=== PATIENT | female | born 2000 | race Caucasian/White ===

== ENCOUNTER → 2021-02-11 | Outpatient (CLI) | payer OTHER ==
--- NOTE | 2021-02-11 11:40 | RAD ---
Exam Date: 02/11/2021 11:05 AM XR KNEE 3 VIEWS_RT Indication: Reason: RIGHT KNEE PAIN / Spl. Instructions: / History: FINDINGS/ IMPRESSION: No acute fracture or dislocation. Alignment and joint spaces are maintained. The soft tissues are w ithin normal limits. Electronically signed by: Gelacio Guidry MD (02/11/2021 11:37 AM) [id number]
== END ==
LOC: RAD 10:54
PROVIDERS: ATTEND Nurse Practitioner Family
DX: M25.561 Pain in right knee (principal)
CPT/HCPCS: 73562

== ENCOUNTER 2021-02-22 00:10 | Emergency (ER) | payer OTHER ==
[~2021-02-22] VITALS: Ht 175.3 cm; Wt 90.9 kg
[2021-02-22 00:10] VITALS: BP 135/78
--- NOTE | 2021-02-22 00:13 | PHYS DOC ---
Past History Past Surgical History Rt knee meniscus and right anterior cruciate repair January 2013 General Adult HPI: HPI: " .. I hurt this Rt. knee playing basket ball in high school.. I tore loose ACL and had a meniscus tear... They said the meniscus tear had some healing so they did not have to do an extensor repair on that but they did have to repair my ACL.... But I was kneeling down the other day with my kids and my knee got locked... It first happened around [facility].... But it worked its way out but tonight I was just bending over and it locked again... " Patient is a 20 year old female who presents with above hx and complaints of Rt. knee pain locked in position with flexion a 15 degree. Patient is unable to straighten knee completely. Distal neurovascular is equal to the left foot. There is some swelling of right knee. Patient's collateral ligaments appear grossly stable. There is some crepitation on limited range of motion right knee. Patient is able to straight leg lift. Patient had previous injury in high school and underwent surgery for ACL repair. Patient also had a meniscal injury at that time. Patient normally follows at [facility]. Has scheduled MRI of right knee on Monday. Patient currently follows with Dr. Zach gabriel. Patient follow with Jovita Cordoba MD for care. Pt. dependent and follows at [facility]. Review of Systems: Review of Systems: Constitutional: Denies fever or chills Eyes: Denies change in visual acuity HENT: Denies nasal congestion or sore throat Respiratory: Denies cough or shortness of breath Cardiovascular: Denies chest pain or edema GI: Denies abdominal pain, nausea, vomiting, bloody stools or diarrhea : Denies dysuria Musculoskeletal: Complains of right knee pain and joint is locked in slight flexion of right knee. Unable to fully extend. Integument: Denies rash Neurologic: Denies headache, focal weakness or sensory changes Endocrine: Denies polyuria or polydipsia Lymphatic: Denies swollen glands Psychiatric: Denies depression or anxiety Family History: Family History: Noncontributory to presentation Current Medications: Current Meds: See nursing for home meds Allergies: Allergies: No known drug allergies Physical Exam: PE: Constitutional: Well developed, well nourished, no acute distress, non-toxic appearance. [] HENT: Normocephalic, atraumatic, bilateral external ears normal, oropharynx moist, no oral exudates, nose normal. [] Eyes: PERRLA, EOMI, conjunctiva normal, no discharge. [] Neck: Normal range of motion, no tenderness, supple, no stridor. [] Cardiovascular:Heart rate regular rhythm, no murmur [] Lungs & Thorax: Bilateral breath sounds clear to auscultation [] Abdomen: Bowel sounds normal, soft, no tenderness, no masses, no pulsatile masses. [] Skin: Warm, dry, no erythema, no rash. [] Back: No tenderness, no CVA tenderness. [] Extremities: No tenderness, no cyanosis, no clubbing, ROM intact, no edema. [] Except findings in right knee. Old scar right knee Neurologic: Alert and oriented X 3, normal motor function, normal sensory function, no focal deficits noted. [] Psychologic: Affect normal, judgement normal, mood normal. [] EKG: EKG: [] Radiology/Procedures: Radiology/Procedures: See prior x-rays on file []02/11/21 No acute fx. or pathology per radiology Heart Score: C/O Chest Pain: N/A Risk Factors: Risk Factors: DM, Current or recent (<one month) smoker, HTN, HLP, family history of CAD, obesity. Risk Scores: Score 0 - 3: 2.5% MACE over next 6 weeks - Discharge Home Score 4 - 6: 20.3% MACE over next 6 weeks - Admit for Clinical Observation Score 7 - 10: 72.7% MACE over next 6 weeks - Early Invasive Strategies Course & Med Decision Making: Course & Med Decision Making Pertinent Labs and Imaging studies reviewed. (See chart for details) Patient has Tylenol and ibuprofen as needed for discomfort. Patient elevate le g. Patient rest. Wear Lester wrap. Distal neurovascular intact after application of Lester wrap. Patient keep follow-ups with orthopedics. Patient keep follow-up with primary care. Patient keep follow-up for MRI. Suspect patient may need arthroscopic evaluation. Return if any concerns. Follow-up Joe. Work excuse given for 3 days. For marked discomfort may take Vicoprofen up to 4 times a day. Ice packs may be helpful for her swelling. Suspect patient most likely have to undergo arthroscopic evaluation of right knee. Impression: 1. Rt Knee locked in slight flexion. 2. History of ACL tear and right knee 3. History of meniscus tear right knee [] Dragon Disclaimer: Dragon Disclaimer: This electronic medical record was generated, in whole or in part, using a voice recognition dictation system. Departure Departure: Referrals: JOVITA ALMAZAN MD (PCP) Scripts Hydrocodone/Ibuprofen (HYDROCODONE-IBUPROFEN 7.5-200 ) 1 Each Tablet 1 TAB PO PRN Q6HRS PRN for PAIN, #30 TAB 0 Refills Prov: JUANI SOSA MD 02/22/21 Alansi Disclaimer This chart was dictated in whole or in part using Voice Recognition software in a busy, high-work load, and often noisy Emergency Department environment. It may contain unintended and wholly unrecognized errors or omissions. JUANI SOSA MD Feb 22, 2021 00:13
[2021-02-22] MEDS ORDERED: HYDR-1179 PO (01:15)
== END 2021-02-22 01:50 | disposition home or self-care (01) ==
LOC: ER 00:10
DX: M25.561 Pain in right knee (principal); Z98.890 Other specified postprocedural states
CPT/HCPCS: 99283